=== PATIENT | male | born 1950 | race Caucasian/White ===

== ENCOUNTER 2017-05-18 13:40 | Emergency (ER) | payer OTHER, MEDICARE | END 2017-05-18 18:42 | disposition home or self-care (01) | LOC: FTE 13:40 | DX: I73.9 Peripheral vascular disease, unspecified (principal); J45.909 Unspecified asthma, uncomplicated; F17.210 Nicotine dependence, cigarettes, uncomplicated; I25.10 Atherosclerotic heart disease of native coronary artery without angina pectoris; E11.9 Type 2 diabetes mellitus without complications; Z79.82 Long term (current) use of aspirin; Z79.84 Long term (current) use of oral hypoglycemic drugs | CPT/HCPCS: 93926; 99284-25 ==

== ENCOUNTER 2017-07-26 11:36 | Day surgery (SDC) | payer MEDICARE, OTHER ==
[2017-07-26] MEDS ORDERED: PROPOFOL 40 ML (14:33)
[2017-07-26] MEDS ORDERED: LIDOCAINE 100 MG SYRINGE (14:33)
== END 2017-07-26 19:02 | disposition home or self-care (01) ==
LOC: GIL 11:36
DX: R19.4 Change in bowel habit (principal); K21.9 Gastro-esophageal reflux disease without esophagitis; K29.60 Other gastritis without bleeding; K64.8 Other hemorrhoids; D12.6 Benign neoplasm of colon, unspecified; E11.9 Type 2 diabetes mellitus without complications; I25.10 Atherosclerotic heart disease of native coronary artery without angina pectoris; J45.909 Unspecified asthma, uncomplicated; F17.200 Nicotine dependence, unspecified, uncomplicated
CPT/HCPCS: 43239; 82962; 88309